=== PATIENT | female | born 1945 | race Caucasian/White ===

== ENCOUNTER 2017-12-11 14:57 | Outpatient (RCR) | payer MEDICARE, OTHER ==
[~2017-12-11 14:57] MED LIST: DILANTIN100 MG PO; Z PHENOBARBITAL PO; Z.0.ATENOLOL25 MG PO; Z.0.NEXIUM20 MG PO; Z.0.SYNTHROID25 MCG; Z.0.TRICOR48 MG PO; [UNRECOGNIZED DRUG - OTHER]
== END 2017-12-22 ==
LOC: PT 14:57
PROVIDERS: ATTEND Psychiatry & Neurology Neurology
DX: M54.5 Low back pain (principal); R29.898 Other symptoms and signs involving the musculoskeletal system; R29.6 Repeated falls
CPT/HCPCS: 97110; 97162; G8978; G8979